=== PATIENT | male | born 1960 | race African-American/Black ===

== ENCOUNTER → 2016-08-20 | Outpatient (CLI) | payer MEDICARE ==
[~2016-08-20] MED LIST: GLUCOPHAGE500 MG/TAB PO; LIORESAL 1010 MG/TAB PO; MONODOX100 PO; MOTRIN 800800 MG/TAB PO; VIAGRA50 M1 PO; ZOCOR 10MG10 MG PO
== END ==
LOC: COL.RAD 09:30
DX: B19.20 Unspecified viral hepatitis C without hepatic coma (principal)

== ENCOUNTER → 2016-09-07 | Outpatient (CLI) | payer MEDICARE ==
[2016-09-07] VITALS (9 sets, daily range): BP systolic 124–146; BP diastolic 70–92; PULSE 51–59
[~2016-09-07] VITALS: Ht 210.8 cm; Wt 84.5 kg
[2016-09-07 12:23] LABS: INR 1.1 (0.8-3.0); PROTHROMBIN TIME 12.6 SECONDS (9.7-12.8)
== END ==
LOC: COL.RAD 11:34
PROVIDERS: Physician Assistant
DX: K73.9 Chronic hepatitis, unspecified (principal); E11.9 Type 2 diabetes mellitus without complications; F41.9 Anxiety disorder, unspecified; F32.9 Major depressive disorder, single episode, unspecified
CPT/HCPCS: 25757

== ENCOUNTER 2019-11-08 16:51 | Emergency (ER) | payer MEDICARE ==
[~2019-11-08] VITALS: Ht 210.8 cm; Wt 99.1 kg
[2019-11-08] MEDS ORDERED: FLEXERIL 1010 MG/TAB PO (17:51)
[2019-11-08 18:19] VITALS: BP 136/86; PULSE 65; TEMP 98
== END 2019-11-08 18:20 | disposition home or self-care (01) ==
LOC: COL.ER 16:51
DX: M54.5 Low back pain (principal); G89.29 Other chronic pain; I10 Essential (primary) hypertension; E11.9 Type 2 diabetes mellitus without complications; Z79.84 Long term (current) use of oral hypoglycemic drugs
CPT/HCPCS: J2360

== ENCOUNTER 2023-08-25 12:11 | Emergency (ER) | payer BC ==
[~2023-08-25] VITALS: Ht 175.3 cm; Wt 99.5 kg
[~2023-08-25 12:11] MED LIST changes: +FLEXERIL 1010 MG/TAB PO
[2023-08-25 12:21] VITALS: TEMP 97.6
[2023-08-25 12:36] LABS: BASO % 0.5 % (0.0-2.0); EOS # 0.1 K/mm3 (0.0-0.7); GRAN # 2.7 K/mm3 (1.4-6.5); HEMATOCRIT 41.3 % (42.0-52.0); HEMOGLOBIN 14.2 g/dl (13.5-18.0); LYMPH # 2.8 K/mm3 (1.2-3.4); LYMPH % 42.1 % (20.0-51.0); MEAN CELL VOLUME 97 fl (80.0-100.0); MEAN CORPUSCULAR HEMOGLOBIN 33 pg (27-31); MEAN CORPUSCULAR HGB CONC 34 g/dl (33.0-37.0); MEAN PLATELET VOLUME 10.8 fl (7.4-10.4); MONO # 0.9 K/mm3 (0.1-0.6); MONO % 14.2 % (1.7-9.3); PLATELET COUNT 193 K/mm3 (130-400); RED BLOOD COUNT 4.27 M/mm3 (4.20-5.60); REDCELL DISTRIBUTION WIDTH-CV 13.2 % (11.5-14.5)
[2023-08-25] MEDS ORDERED: Morphine 4 MG/ML VIAL IV ONE (12:45)
[2023-08-25 13:05] LABS: ALBUMIN 3.9 gm/dL (3.4-4.8); BILIRUBIN,TOTAL 0.7 mg/dL (0.2-1.2); CALCIUM 9.9 mg/dL (8.4-10.2); CREATININE, serum 1.04 mg/dL (0.72-1.25); TOTAL PROTEIN 7.3 gm/dL (6.2-8.1)
[2023-08-25 13:10] LABS: TROPONIN-I 0.011 ng/mL (0.00-0.033)
[2023-08-25 17:54] VITALS: BP 136/102; PULSE 86
== END 2023-08-25 17:58 | disposition home or self-care (01) ==
LOC: COL.ER 12:11
PROVIDERS: Emergency Medicine
DX: R07.89 Other chest pain (principal)
CPT/HCPCS: J2270